=== PATIENT | female | born 1985 | race Caucasian/White ===

== ENCOUNTER 2017-12-23 15:53 | Emergency (ER) | payer OTHER ==
[~2017-12-23] VITALS: Ht 160 cm; Wt 78.9 kg
[~2017-12-23 15:53] MED LIST: ACULAR 0.5100 DROP/5 RIGHT EYE; CELEXA20 MG PO; CLEOCIN300 MG PO; FIORICET 50-301 EACH PO; HYDROCODON-ACE1 EAC7 PO; LEVEMIR100 UNIT/2 SC; LISINOPRIL2.5 MG PO; LO-DOSE ASPIRIN81 M1 PO; LOVASTATIN10 MG PO; NAPROSYN500 MG PO; NOVOLIN N100 UNITS/ SC; NOVOLIN,HU100 UNITS1 SC; NOVOLOG 10100 UNITS/ SC; PERCOCET 5/31 TABLET PO; PHENTERMINE H37.5 MG PO; PRED FORTE100 DROP/5 BOTH EYES; QUETIAPINE FUMA25 MG PO; SPRINTEC1 EACH PO; TRAMADOL HCL50 MG PO; TRUSOPT5 ML BOTH EYES; ZOFRAN ODT4 MG PO; ZOFRAN4 MG PO
[2017-12-23 16:22] LABS: HEMATOCRIT 37.6 % (36.0-46.0); HEMOGLOBIN 11.9 G/DL (11.9-15.5); MCH 26.3 PG (29.0-34.0); MCHC 31.6 G/DL (30.0-36.0); MCV 83.2 FL (83-99); PLATELET COUNT 375 K/uL (156-360); RBC DIS.WIDTH-CV 13.8 % (11.8-14.6); RED BLOOD COUNT 4.52 M/uL (3.80-5.20)
[2017-12-23 16:31] LABS: CHLORIDE 101 mEq/L (99-109); POTASSIUM 4.3 mEq/L (3.7-5.4)
[2017-12-23 16:32] LABS: SODIUM 133 mEq/L (136-147)
[2017-12-23 16:33] LABS: GLUCOSE 295 mg/dL (70-99)
[2017-12-23 16:37] LABS: GFR ESTIMATE (CALCULATED) > 59 mL/min/
[2017-12-23 16:38] LABS: UREA NITROGEN (BUN) 14 mg/dL (9-23)
[2017-12-23 16:46] LABS: QUANTITATIVE HCG < 4.0 MIU/ML
[2017-12-23 17:21] LABS: APPEARANCE CLEAR ((CLEAR)); BILIRUBIN NEGATIVE; BLOOD MODERATE; COLOR STRAW ((YELLOW)); GLUCOSE (STRIP) >=500; KETONES NEGATIVE; LEUKOCYTES NEGATIVE; NITRITE NEGATIVE; PROTEIN (STRIP) NEGATIVE; SPECIFIC GRAVITY 1.025 (1.000-1.030); UROBILINOGEN 0.2 MG/DL (0.2-1.0)
[2017-12-23 17:26] LABS: BACTERIA NONE SEEN /HPF; EPITHELIAL CELLS RARE /HPF; MUCUS TRACE /LPF; RED BLOOD CELLS 0-5 /HPF (0-5); UCUL ADDED? NO; WHITE BLOOD CELLS 0-5 /HPF (0-5)
[2017-12-23 17:55] LABS: SOURCE SWAB
[2017-12-23] MEDS ORDERED: NAPROSYN500 MG PO (18:54)
[2017-12-23 20:14] VITALS: BP 124/67
== END 2017-12-23 20:16 | disposition home or self-care (01) ==
LOC: EME 15:53
PROVIDERS: Physician Assistant
DX: N93.9 Abnormal uterine and vaginal bleeding, unspecified (principal); R10.2 Pelvic and perineal pain; Z97.5 Presence of (intrauterine) contraceptive device; E10.319 Type 1 diabetes mellitus with unspecified diabetic retinopathy without macular edema; H54.62 Unqualified visual loss, left eye, normal vision right eye; Z79.4 Long term (current) use of insulin; Z88.0 Allergy status to penicillin; Z79.82 Long term (current) use of aspirin
CPT/HCPCS: 76856; 80048; 81003; 84702; 85027; 87210; 87491; 87591; 99281; 99284